=== PATIENT | male | born 1970 | race Caucasian/White ===

== ENCOUNTER 2018-10-07 09:08 | Emergency (ER) | payer OTHER ==
--- NOTE | 2018-10-07 09:46 | ED ---
Wound/Laceration HPI - General Chief Complaint: Wound/Laceration Stated Complaint: Bleeding from leg Time Seen by Provider: 10/07/18 09:13 Source: patient, RN notes reviewed Mode of arrival: ambulatory Limitations: no limitations - History of Present Illness Initial Comments: 48 show male presents emergency Department chief complaint of bleeding varicose vein on right leg. 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 He States He Did Wrap It and Has Not Rechecked It. Patient States Is Never Happened in the past. He Has Never Seen Vascular Surgery. Patient Denies Any Other Complaints at This Time. - Related Data Home Medications Medication Instructions Recorded Confirmed Supa Red Fish Oil 350 mg PO DAILY 11/27/15 10/07/18 Montelukast [Singulair] 10 mg PO HS 11/27/15 10/07/18 Omeprazole [PriLOSEC] 20 mg PO AC-BRKFST 11/27/15 10/07/18 Allergies Allergy/AdvReac Type Severity Reaction Status Date / Time No Known Allergies Allergy Verified 10/07/18 09:12 Review of Systems ROS Statement: Those systems with pertinent positive or pertinent negative responses have been documented in the HPI. ROS Other: All systems not noted in ROS Statement are negative. Past Medical History Past Medical History: Asthma, GERD/Reflux History of Any Multi-Drug Resistant Organisms: None Reported Past Surgical History: Hernia Repair Additional Past Surgical History / Comment(s): wisdom teeth, EGD Past Anesthesia/Blood Transfusion Reactions: Previous Problems w/ Anesthesia, Family History of Problems w/ Anesthesia Additional Past Anesthesia/Blood Transfusion Reaction / Comment(s): "I woke up angry". dad has hard time waking up Past Psychological History: No Psychological Hx Reported Smoking Status: Never smoker Past Alcohol Use History: None Reported Past Drug Use History: None Reported - Past Family History Mother Family Medical History: No Reported History General Exam Limitations: no limitations General appearance: alert, in no apparent distress Head exam: Present: atraumatic, normocephalic, normal inspection Respiratory exam: Present: normal lung sounds bilaterally. Absent: respiratory distress, wheezes, rales, rhonchi, stridor Cardiovascular Exam: Present: regular rate, normal rhythm, normal heart sounds. Absent: systolic murmur, diastolic murmur, rubs, gallop, clicks Extremities exam: Present: other (Right leg there is a varicose vein noted with no active bleeding there was a site with dry blood. Pulses are intact equal bilaterally) Skin exam: Present: warm, dry, intact Course Vital Signs 10/07/18 09:09 Temperature 98.5 F Pulse Rate 75 Respiratory 16 Rate Blood Pressure 140/84 O2 Sat by Pulse 98 Oximetry Medical Decision Making - Medical Decision Making 48-year-old male presented for varicose vein on his leg. Patient has no rebleeding emergency department was able to ambulate with no pressure gauze on. Patient we discharged will follow-up with Dr. Holley we did discuss wearing compression stockings. Return parameters discussed Disposition Clinical Impression: Varicose vein of leg Disposition: HOME SELF-CARE Condition: Stable Instructions: Venous Insufficiency (DC), Vein Stripping (DC) Additional Instructions: Please return to the Emergency Department if symptoms worsen or any other concerns. Is patient prescribed a controlled substance at d/c from ED?: No Referrals: Jeff Casey MD [Primary Care Provider] - 1-2 days Dharmesh Holley MD [STAFF PHYSICIAN] - 1-2 days Time of Disposition: 10:21
[2018-10-07 11:00] VITALS: BP 115/87; PULSE 72; RESP 18; TEMP 98.6
== END 2018-10-07 10:54 | disposition home or self-care (01) ==
LOC: EC 09:08
DX: I83.91 Asymptomatic varicose veins of right lower extremity (principal); J45.909 Unspecified asthma, uncomplicated; K21.9 Gastro-esophageal reflux disease without esophagitis; Z79.899 Other long term (current) drug therapy
CPT/HCPCS: 99283

== ENCOUNTER 2019-01-10 10:03 | Day surgery (SDC) | payer OTHER ==
[2019-01-09 09:23] VITALS: BMI 37.8
[~2019-01-10 10:03] MED LIST: LACTATED RINGERS 1,000 ML IV SCH; LIDOCAINE 1% 20 ML VIAL (10MG/ML) FOR IV START INTRADERMA PRN
[2019-01-10 10:30] VITALS: TEMP 97.4
[2019-01-10] MEDS ORDERED: PROPOFOL 10 MG/ML 20 ML VIAL IV ONE (12:01)
[2019-01-10] MEDS ORDERED: LIDOCAINE 1% INJ 10MG/ML (20 ML MDV) ONE (12:01)
[2019-01-10 12:52] VITALS: BP 123/74; PULSE 73; RESP 18
--- NOTE | 2019-01-10 13:19 | P.PCN ---
Date of Procedure: 01/10/19 Procedure(s) Performed: Procedure: Total colonoscopy. Preoperative diagnosis: History of rectal bleeding. Postoperative diagnosis: Less than ideal preparation, otherwise, exam reveals low-grade internal hemorrhoids without bleeding at the time of the exam and no other obvious pathology. Preparation: HalfLytely prep. Sedation: Was provided by anesthesia. Brief clinical history: The patient is a 48-year-old male who is scheduled for this evaluation because of an episode of painless rectal bleeding that he experienced last week. The patient denied any change in bowel habits including any issues with constipation or diarrhea. His indicated that he spends a long time attempting to have a bowel movement every morning and he may go back again in the span of an hour or so. No family history of colon cancer. This would be his first colonoscopy. Procedure: With the patient on his left lateral decubitus position and after informed consent and adequate sedation, the perianal area was inspected and it did not show any fissures or fistulas. There were no masses felt on digital rectal examination. The Olympus CFH 190L video colonoscope was then inserted in the rectum in the usual fashion and advanced to the cecum. Unfortunately, the preparation was poor and there was significant amount of thick fecal secretions and fecal debris encountered. There were no obvious polyps or tumors or any obvious diverticular disease or bleeding. The mucosa appeared healthy. I retroflexed the endoscope in the rectum before the endoscope was withdrawn. Low-grade internal hemorrhoids were noted with no evidence of bleeding. The patient tolerated the procedure well. Plan: The patient was reassured. Discussed dietary measures and local care for hemorrhoids. Because of his less than ideal preparation today, I am recommending repeat exam in 3 years or so, possibly after a 2 day prep.
== END 2019-01-10 13:05 | disposition home or self-care (01) ==
LOC: ORWHC2ENDO 10:03
DX: K64.8 Other hemorrhoids (principal); J45.909 Unspecified asthma, uncomplicated; Z79.51 Long term (current) use of inhaled steroids; Z79.899 Other long term (current) drug therapy; K21.9 Gastro-esophageal reflux disease without esophagitis
CPT/HCPCS: 45378

== ENCOUNTER → 2023-05-11 | Outpatient (CLI) | payer OTHER ==
--- NOTE | 2023-05-11 10:09 | XR ---
EXAMINATION TYPE: XR knee complete LT DATE OF EXAM: 05/11/2023 COMPARISON: NONE HISTORY: Pain TECHNIQUE: Three views are submitted. FINDINGS: Joint spaces are preserved. Osseous structures are intact. No acute fracture seen. There is a smal l suprapatellar bursal fluid collection. IMPRESSION: 1. No acute fracture or dislocation. Small suprapatellar bursal fluid collection can be associated w ith internal derangement of the knee, consider MRI follow-up.
== END | disposition home or self-care (01) ==
LOC: LABWHC1 09:44
PROVIDERS: ATTEND Family Medicine
DX: M25.562 Pain in left knee (principal)